=== PATIENT | male | born 1965 | race Caucasian/White ===

== ENCOUNTER 2021-04-02 17:48 | Emergency (ER) | payer BC ==
[~2021-04-02] VITALS: Ht 188 cm; Wt 83.5 kg
--- NOTE | 2021-04-02 18:23 | NUR ---
Dr. Juarez at bedside for MSE.
[2021-04-02] MEDS ORDERED: ASPIRIN 81 MG TAB.CHEW PO ONE (18:45)
[2021-04-02] MEDS ORDERED: ASPIRIN 81 MG TAB.CHEW ONE (18:58)
--- NOTE | 2021-04-02 19:05 | NUR ---
Received report from day shift nurse. Patient just returned from CT. Patient appears in great spirits, no signs of distress. A/O x4, able to clearly explain the current condition that led him to be here in the ER today. Patient hooked up to the monitor, howing sinud bradycardia, however patient appears fit and is symtomatic, this may be his baseline HR. Patient has his call light and will inform me if he needs anything. Continuing to monitor.
[2021-04-02 19:18] LABS: BASOPHILS # (AUTO) 0.1 K/uL (0.0-8.0); BASOPHILS % (AUTO) 2.5 % (0.0-2.0); EOSINOPHILS # (AUTO) 0.4 K/uL (0.0-0.7); EOSINOPHILS % (AUTO) 7.5 % (0.0-7.0); HEMATOCRIT 39.6 % (36.7-47.1); HEMOGLOBIN 13.4 g/dL (12.5-16.3); LYMPHOCYTES # (AUTO) 1.9 K/uL (20.0-40.0); LYMPHOCYTES % (AUTO) 33.4 % (20.5-51.5); MEAN CORPUSCULAR HGB CONC 34 g/dL (32.5-36.3); MEAN CORPUSCULAR VOLUME 88.4 fL (73.0-96.2); MONOCYTES # (AUTO) 0.5 K/uL (2.0-10.0); MONOCYTES % (AUTO) 9.8 % (0.0-11.0); NEUTROPHILS # (AUTO) 2.6 K/uL (1.8-8.9); NEUTROPHILS % (AUTO) 46.8 % (38.5-71.5); PLATELET COUNT (AUTO) 335 K/uL (152-348); RED BLOOD CELL COUNT(AUTO) 4.48 MIL/uL (4.06-5.63); WHITE BLOOD COUNT (AUTO) 5.5 K/uL (3.6-10.2)
[2021-04-02 19:21] LABS: CREATININE 1.1 mg/dL (0.6-1.3)
[2021-04-02 19:34] LABS: BILIRUBIN,DIRECT 0.1 mg/dL (0.0-0.2); BILIRUBIN,TOTAL 0.2 mg/dL (0.2-1.0); TOTAL PROTEIN, SERUM 7.7 g/dL (6.4-8.2)
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
[2021-04-02 22:51] VITALS: BP 121/83
--- NOTE | 2021-04-02 22:51 | NUR ---
Patient discharged to home Against Medical Advise in stable condition. Written and verbal after care instructions given. Patient verbalizes understanding of instructions. Stressed follow up or return to ER for worsening s/s. All pertinent labs and diagnostic procedure results given to the patient. Dr. Juarez informed the patient of all risks of leaving against medical advise, patient verbalized understanding of those risks. No SOB or signs of distress upon discharge.
== END 2021-04-02 22:45 | disposition left against medical advice (07) ==
LOC: ER 17:52
DX: G45.9 Transient cerebral ischemic attack, unspecified (principal); R07.9 Chest pain, unspecified; Z82.49 Family history of ischemic heart disease and other diseases of the circulatory system; R00.1 Bradycardia, unspecified
CPT/HCPCS: 36415; 70030-TC; 70450; 71045; 85025; 93005; A4663